=== PATIENT | male | born 1980 | race Caucasian/White ===

== ENCOUNTER 2016-08-18 07:31 | Day surgery (SDC) | payer MEDICAID ==
[2016-08-18] MEDS ORDERED: Dextrose 5%-Lactated Ringers 1,000 ML IV SCH (08:15)
[2016-08-18] MEDS ORDERED: Linezolid 600 MG in Premix Bag 1 BAG IV ONE (08:15)
[2016-08-18] MEDS ORDERED: Lidocaine 1% with EPINEPHrine 1:100,000 50 ML MDV ONE (08:26)
[2016-08-18] MEDS ORDERED: Bupivacaine 0.5% 50 ML MDV ONE (08:26)
[2016-08-18] MEDS ORDERED: fentaNYL 100 MCG/2 ML SDV ONE (08:43)
[2016-08-18] MEDS ORDERED: Midazolam 1 MG/ML 2 ML SDV ONE (08:43)
[2016-08-18] MEDS ORDERED: Propofol 200 MG/20 ML SDV ONE (08:43)
[2016-08-18 09:54] VITALS: BP 121/33
--- NOTE | 2016-08-18 11:07 | CR ---
Single fluoroscopic image of a left Port-A-Cath.
--- NOTE | 2016-08-19 10:31 | OR ---
DATE OF PROCEDURE: 08/18/2016 PREOPERATIVE DIAGNOSIS: Hodgkin's disease with requirement for central venous access. POSTOPERATIVE DIAGNOSIS: Hodgkin's disease with requirement for central venous access. OPERATIVE PROCEDURE: Insertion of Bard PowerPort via left subclavian vein approach (00190). ANESTHESIA: Local plus IV sedation. INDICATIONS FOR PROCEDURE: This 36-year-old recently diagnosed with Hodgkin's disease, to facilitate chemotherapy, is to undergo a central venous access placement. Potential risks of procedure including bleeding, infection, pneumohemothorax, injury to the vasculature, possibility of the port becoming infected or occluded were all reviewed, and the patient wishes to proceed. DESCRIPTION OF PROCEDURE: The patient was taken to the operating room and placed in a supine position. IV sedation was administered, after which the upper chest and neck areas were prepped and draped. The left subclavian area was anesthetized with 1% lidocaine mixed with Marcaine, the subclavian vein cannulated, and a guidewire passed from there into the superior vena cava. Some additional local was then injected and a transverse infraclavicular incision made and carried down through the skin and subcutaneous tissue to the pectoralis major fascia. A pocket was then bluntly created underneath the pectoralis major fascia. The PowerPort was then positioned into that pocket, and the catheter was cut, such that the tip would lie into the upper right atrium. Over the introducer and peel-away catheter, the Bard PowerPort catheter was placed in a successful location, and no complications were confirmed by fluoroscopy. The incision was then closed with 3-0 and 4-0 Vicryl stitch deep and a 4-0 Vicryl subcuticular stitch. Steri-Strips applied. The port was flushed once again with heparinized saline, and dressing was applied. There were no evident complications. The patient was taken to the recovery room in satisfactory condition. Eric Gama MD /[id number]
== END 2016-08-18 10:18 | disposition home or self-care (01) ==
LOC: JP.SDS 07:31
PROVIDERS: ATTEND Surgery
PROC: 0JH63XZ Insertion of Tunneled Vascular Access Device into Chest Subcutaneous Tissue and Fascia, Percutaneous Approach (ICD-10-PCS; principal; 2016-08-18)
DX: C81.90 Hodgkin lymphoma, unspecified, unspecified site (principal); Z92.21 Personal history of antineoplastic chemotherapy
CPT/HCPCS: 36415; 36561; 85025; C1788; J1642; J2020; J2250; J2704; J3010; J7042

== ENCOUNTER 2016-11-03 14:01 | Inpatient (IN) | payer MEDICAID ==
[2016-11-03] MEDS ORDERED: Acetaminophen 325 MG Tab PO PRN (14:50)
[2016-11-03] MEDS ORDERED: Ibuprofen 600 MG Tab PO PRN (14:50)
[2016-11-03] MEDS ORDERED: Ondansetron 4 MG Tab.DIS PO PRN (14:50)
[2016-11-03] MEDS ORDERED: Sodium Chloride 0.9% 10 ML Syringe FLUSH PRN (14:50)
--- NOTE | 2016-11-03 15:03 | PCM.HP ---
H&P History of Present Illness - General Date of Service: 11/03/16 Admit Problem/Dx: Admission Diagnosis/Problem Admission Diagnosis/Problem Fever Source of Information: Patient, Provider History Limitations: Reports: No Limitations - History of Present Illness Initial Comments - Free Text/Narative: Jorge presents as a direct admission from the urgent care clinic. He presented there today with odynophagia. He reports pain in the left upper part of his mouth when he tries to eat or swallow. This symptom has been present for the past 2 days and was worse than normal this morning. He has not had fevers or chills at home. Appetite has been normal and he has not had nausea or vomiting. No complaints of cough, shortness of breath or diarrhea. In general he feels well. He has not noticed any skin rashes. Most recent chemotherapy was 2 weeks ago tomorrow. Workup in the walk-in clinic revealed a fever and mild tachycardia. No obvious source for infection of possibly a dental infection. He was noted to be neutropenic with an absolute neutrophil count of 400. He was directly admitted for IV antibiotics and further workup for infection. - Related Data Allergies/Adverse Reactions: Allergies Allergy/AdvReac Type Severity Reaction Status Date / Time No Known Allergies Allergy Verified 06/16/16 15:11 Past Medical History HEENT History: Reports: Otitis Media Immunologic History: Reports: Immunosuppression Other Immunologic History: low WBC count Oncologic (Cancer) History: Reports: Hodgkin's Lymphoma - Infectious Disease History Infectious Disease History: Reports: Chicken Pox - Past Surgical History HEENT Surgical History: Reports: Eye Surgery, Other (See Below) Other HEENT Surgeries/Procedures: left eye when he was a child Oncologic Surgical History: Reports: None Social & Family History - Family History Family Medical History: Noncontributory - Tobacco Use Smoking Status *Q: Never Smoker - Caffeine Use Caffeine Use: Reports: Coffee, Soda - Alcohol Use Days Per Week of Alcohol Use: 7 Number of Drinks Per Day: 1 Total Drinks Per Week: 7 - Recreational Drug Use Recreational Drug Use: No H&P Review of Systems - Review of Systems: Review Of Systems: See Below Free Text/Narrative: A complete 12 point review of systems was obtained. Pertinent positives and negatives are noted in the history of present illness. All other systems were reviewed and were negative except as noted. Exam - Exam Exam: See Below - Vital Signs Vital Signs: Last Vital Signs Temp 37.6 C 11/03/16 14:43 Pulse 95 11/03/16 14:43 Resp 18 11/03/16 14:43 BP 118/75 11/03/16 14:43 Pulse Ox 97 11/03/16 14:43 Weight: 87.997 kg - Exam Quality Assessment: No: Supplemental Oxygen General: Alert, Oriented, Cooperative. No: Mild Distress HEENT: Conjunctiva Clear, Mucosa Moist & [place], Posterior Pharynx Clear, Pupils Equal, Other (mild inflammation left posterior hard palate. No obvious abnormalities of the teeth such as discharge or erythema of the surrounding gum tissue). No: Scleral Icterus Neck: Supple, Trachea Midline. No: Lymphadenopathy, Thyromegaly Lungs: Clear to Auscultation, Normal Respiratory Effort Cardiovascular: Regular Rate, Regular Rhythm. No: Systolic Murmur GI/Abdominal Exam: Normal Bowel Sounds, Soft, Non-Tender, No Distention Back Exam: Normal Inspection, Full Range of Motion Extremities: Normal Inspection, No Pedal Edema. No: Joint Swelling Peripheral Pulses: 2+: Dorsalis Pedis (L), Dorsalis Pedis (R) Skin: Warm, Dry, Intact. No: Rash Neuro Extensive - Mental Status: Oriented x3, Nl Response to Commands Neuro Extensive - Motor, Sensory, Reflexes: CN II-XII Intact. No: Dysarthria, Abnormal Motor, Tremor Psychiatric: Alert, Normal Affect - Patient Data Lab Results Last 24 hrs: white blood cell count at the outside clinic is 3100 with 400 neutrophils Imaging Impressions Last 24 hrs: chest x-ray - images personally reviewed - there is no evidence for mass, infiltrate or congestive heart failure. Heart size is normal. *Q Meaningful Use (ADM) - VTE *Q VTE Criteria *Q: - VTE Risk Assess *Q Each Risk Factor Represents 1 Point: Central Venous Access Total Score 1 Point Risk Factors: 1 Each Risk Factor Represents 2 Points: None Total Score 2 Point Risk Factors: 0 Each Risk Factor Represents 3 Points: Present Cancer or Chemotherapy Total Score 3 Point Risk Factors: 3 Each Risk Factor Represents 5 Points: None Total Score 5 Point Risk Factors: 0 Venous Thromboembolism Risk Factor Score *Q: 4 - Stroke *Q Stroke Criteria *Q: - AMI *Q AMI Criteria *Q: - Problem List (1) Neutropenic fever SNOMED Code(s): 076048183 ICD Code: D70.9 - NEUTROPENIA, UNSPECIFIED; R50.81 - FEVER PRESENTING WITH CONDITIONS CLASSIFIED ELSEWHERE Status: Acute Current Visit: Yes (2) Hodgkins lymphoma SNOMED Code(s): 490378881 ICD Code: C81.90 - HODGKIN LYMPHOMA, UNSPECIFIED, UNSPECIFIED SITE Status: Chronic Current Visit: Yes Qualifiers: Hodgkin lymphoma type: nodular sclerosis Lymphoma site: multiple regions Qualified Code(s): C81.18 - Nodular sclerosis Hodgkin lymphoma, lymph nodes of multiple sites Problem List Initiated/Reviewed/Updated: Yes Orders Last 24hrs: Active Orders 24 hr Category Date Time Status Patient Status [ADT] Routine ADT 11/03/16 14:50 Ordered Intake and Output [RC] QSHIFT Care 11/03/16 14:50 Ordered Notify Provider Vital Signs [RC] ASDIRECTED Care 11/03/16 14:50 Ordered Oxygen Therapy [RC] PRN Care 11/03/16 14:50 Ordered Up ad Kaitlin [RC] ASDIRECTED Care 11/03/16 14:50 Ordered VTE/DVT Education [RC] Per Unit Routine Care 11/03/16 14:50 Ordered Vital Signs [RC] Q4H Care 11/03/16 14:50 Ordered Regular Diet [DIET] Diet 11/03/16 Dinner Ordered Chest 2V [CR] Routine Exams 11/03/16 14:50 Ordered BASIC METABOLIC PANEL,BMP [CHEM] Routine Lab 11/03/16 14:50 Ordered C-REACTIVE PROTEIN [CHEM] Routine Lab 11/03/16 14:50 Ordered CBC WITH AUTO DIFF [HEME] AM Lab 11/04/16 05:11 Ordered CBC WITH AUTO DIFF [HEME] Routine Lab 11/03/16 14:50 Ordered CULTURE BLOOD [BC] Urgent Lab 11/03/16 14:52 Ordered CULTURE BLOOD [BC] Urgent Lab 11/03/16 14:52 Ordered LACTIC ACID [CHEM] Routine Lab 11/03/16 14:54 Ordered UA W/MICROSCOPIC [URIN] Routine Lab 11/03/16 14:50 Uncollected Acetaminophen [Tylenol] Med 11/03/16 14:50 Ordered 650 mg PO Q4H PRN Cefepime [Maxipime] 1 gm Med 11/03/16 22:00 Ordered Sodium Chloride 0.9% [Normal Saline] 50 ml IV Q8HR Docusate Sodium/Sennosides [Senna Plus] Med 11/03/16 14:50 Ordered 1 tab PO BID PRN Filgrastim [Neupogen] Med 11/03/16 15:00 Once 480 mcg SUBCUT ONETIME ONE Ibuprofen [Motrin] Med 11/03/16 14:50 Ordered 600 mg PO Q6H PRN Ondansetron [Zofran ODT] Med 11/03/16 14:50 Ordered 4 mg PO Q6H PRN Sodium Chloride 0.9% [Saline Flush] Med 11/03/16 14:50 Ordered 10 ml FLUSH ASDIRECTED PRN Blood Culture x2 Reflex Set [OM.PC] Urgent Oth 11/03/16 14:52 Ordered Saline Lock Insert [OM.PC] Routine Oth 11/03/16 14:50 Ordered Sequential Compression Device [OM.PC] Per Unit Routine Oth 11/03/16 14:51 Ordered Resuscitation Status Routine Resus Stat 11/03/16 14:50 Ordered Assessment/Plan Comment:: Assessment and plan - Neutropenic fever - only abnormal exam finding is erythema of the left hard palate, mild dental infection could be considered. No evidence for pulmonary infection and no abdominal or urinary symptoms. No evidence for sepsis at this time. -Follow-up labs and urinalysis -Broad-spectrum antibiotic coverage with cefepime -Blood cultures -Filgrastim today and reassess ANC in the morning, oncology goal is greater than 1500 neutrophils Hodgkin's lymphoma - in remission based on most recent PET/CT, is currently receiving AVD chemotherapy every 15 days, would be due to get his next dose tomorrow.now has fever and neutropenia. Care was discussed with his oncology team this afternoon. -hold chemotherapy for now -filgrastim as above Maintenance issues - - DVT prophylaxis - patient will be ambulatory - GI prophylaxis - not indicated - Nutrition - regular diet - Felipe catheter - not indicated CODE STATUS - full code Admission justification - This patient will be admitted for inpatient services and is medically appropriate meeting medical necessity for inpatient admission as outlined in my documentation. I reasonably expect the patient will require inpatient services that span a period time over 2 midnights. I reasonably expect this patient to be discharged or transferred within 96 hours [facility] Disposition - anticipate discharge home after the hospital stay Primary care physician - [facility] Roger Cedeno M.D.
[2016-11-03] MEDS: Cefepime 1 GM in Sodium Chloride 0.9% 50 ML IV SCH ×2 (16:00→23:39)
[2016-11-04 07:10] VITALS: BP 105/60
[2016-11-04] MEDS: Cefepime 1 GM in Sodium Chloride 0.9% 50 ML IV SCH (09:03)
--- NOTE | 2016-11-04 09:07 | CR ---
Chest 2V HISTORY: Fever COMPARISON: 09/16/2016. FINDINGS: Left-sided Port-A-Cath. Cardiac size and pulmonary vessels normal. Soft tissue prominence in the right paratracheal region correlating to prominent lymph nodes on prior CT scan in August. No de nse infiltrate or effusions seen.
--- NOTE | 2016-11-04 09:44 | PCM.DCSUM1 ---
Discharge Summary - Hospital Course Brief History: 36-year-old male with Hodgkin's lymphoma currently receiving chemotherapy who presented with fever and neutropenia. He was admitted for workup and management. - Discharge Data Discharge Date: 11/04/16 Discharge Disposition: Home, Self-Care 01 Condition: Good - Discharge Diagnosis/Problem(s) (1) Neutropenic fever SNOMED Code(s): 209442076 ICD Code: D70.9 - NEUTROPENIA, UNSPECIFIED; R50.81 - FEVER PRESENTING WITH CONDITIONS CLASSIFIED ELSEWHERE Status: Acute (2) Dental infection SNOMED Code(s): 141461013 ICD Code: K04.7 - PERIAPICAL ABSCESS WITHOUT SINUS Status: Acute (3) Hodgkins lymphoma SNOMED Code(s): 834451604 ICD Code: C81.90 - HODGKIN LYMPHOMA, UNSPECIFIED, UNSPECIFIED SITE Status: Chronic Qualifiers: Hodgkin lymphoma type: nodular sclerosis Lymphoma site: multiple regions Qualified Code(s): C81.18 - Nodular sclerosis Hodgkin lymphoma, lymph nodes of multiple sites - Patient Summary/Data Hospital Course: Jorge presented as a direct admission from the walk-in clinic after he presented with mouth pain and was found to have fever and neutropenia. He was admitted to the hospital and fever workup was initiated. Blood cultures were collected. Chest x-ray was not suggestive of pneumonia and urinalysis was clear. The only abnormality on physical examination was some erythema of the left posterior hard palate. There was no strong evidence for dental infection at this time with no purulent drainage noted. Given the fever greater than 101 and neutrophil count less than 500 I elected to start him on cefepime. Overnight he did not have any difficulties with fever and the next morning is feeling dramatically better. His blood cultures are negative as we near 24 hours. The erythema on the hard palate has improved dramatically but not quite resolved. He did receive a dose of Neulasta on the day of admission and his white blood cell count the day after admission is greater than 7000 with a neutrophil count greater than 3500. I did discuss the case with the oncology team and they were okay with discharged home at this time. I'm planning to continue Augmentin for a total of 1 week of therapy to treat suspected dental infection that involved the left hard palate. I did not see any evidence for abscess formation or active purulent drainage. He will be following up with the oncology team in 1 week. Chemotherapy will be on hold until that time. - Patient Instructions Diet: Regular Diet as Tolerated Activity: As Tolerated Driving: May Drive Today Showering/Bathing: May Shower Notify Provider of: Fever, Increased Pain, Nausea and/or Vomiting Other/Special Instructions: 1. You were in the hospital for management of fever and neutropenia. I suspect the source of infection was a dental infection in the left upper part of your mouth with some inflammation on the hard palate in that area. Your white blood cell count and especially the neutrophil count is now back in the normal range. I do recommend that you take Augmentin twice daily with food for 11 more doses to help treat the rest of the infection. Your first dose is due tonight. Please take the medication with food to help avoid stomach upset. 2. Please seek medical attention if you develop fever greater than 101, the pain in your mouth worsens or you develop shortness of breath, abdominal pain or diarrhea. - Discharge Plan Prescriptions/Med Rec: Amoxicillin/Clavulanate K [Augmentin 875 MG] 1 tab PO BID #11 tablet Home Medications: Home Meds Naproxen 500 mg PO BID PRN 11/03/16 [History] Neomycin/Polymyxin B Sulf/HC [Vtxhazqu-Ugnrnfgwl-Tj Ear Susp] 10 ml EARLF QID [History] tiZANidine [Zanaflex] 4 mg PO TID PRN 11/03/16 [History] Amoxicillin/Clavulanate K [Augmentin 875 MG] 1 tab PO BID #11 tablet 11/04/16 [ Rx] Patient Handouts: Amoxicillin; Clavulanic Acid tablets Referrals: Joanne Collins PA-C [Ordering Only Provider] - 11/10/16 9:45 am - Discharge Summary/Plan Comment DC Time >30 min.: No (25) - Patient Data Vitals - Most Recent: Last Vital Signs Temp 37.3 C 11/04/16 07:09 Pulse 77 11/04/16 07:09 Resp 16 11/04/16 07:09 BP 105/60 11/04/16 07:09 Pulse Ox 97 11/04/16 07:09 Weight - Most Recent: 87.997 kg I&O - Last 24 hours: Intake & Output 11/03/16 11/04/16 11/04/16 22:59 06:59 14:59 Intake Total 50 670 50 Balance 50 670 50 Lab Results - Last 24 hrs: Laboratory Results - last 24 hr 11/03/16 11/03/16 11/03/16 Range/Units 14:50 15:25 15:25 WBC 3.2 L (4.5-11.0) K/uL RBC 4.51 (4.30-5.90) M/uL Hgb 12.9 D (12.0-15.0) g/dL Hct 38.0 L (40.0-54.0) % MCV 84 (80-98) fL MCH 29 (27-31) pg MCHC 34 (32-36) % Plt Count 292 (150-400) K/uL Neut % (Auto) 14 L (36-66) % Lymph % (Auto) 30 (24-44) % [place] % (Auto) 53 H (2-6) % Eos % (Auto) 0 L (2-4) % Baso % (Auto) 2 H (0-1) % Add Manual Diff Neutrophils % (Manual) (36-66) % Band Neutrophils % (5-11) % Lymphocytes % (Manual) (24-44) % Monocytes % (Manual) (2-6) % Eosinophils % (Manual) (2-4) % Sodium 137 L (140-148) mmol/L Potassium 3.7 (3.6-5.2) mmol/L Chloride 102 (100-108) mmol/L Carbon Dioxide 26 (21-32) mmol/L Anion Gap 12.7 (5.0-14.0) mmol/L BUN 10 (7-18) mg/dL Creatinine 1.0 (0.8-1.3) mg/dL Est Cr Clr Drug Dosing 113.17 mL/min Estimated GFR (MDRD) > 60 (>60) Glucose 96 (74-106) mg/dL Lactic Acid (0.4-2.0) mmol/L Calcium 9.1 (8.5-10.1) mg/dL C-Reactive Protein 7.28 H (0.0-0.3) mg/dL Urine Color Yellow Urine Appearance Slightly cloudy Urine pH 7.0 (4.5-8.0) Ur Specific [place] 1.005 L (1.008-1.030) Urine Protein Trace (NEGATIVE) mg/dL Urine Glucose (UA) Normal (NEGATIVE) mg/dL Urine Ketones 15 H (NEGATIVE) mg/dL Urine Occult Blood Negative (NEGATIVE) Urine Nitrite Negative (NEGAITVE) Urine Bilirubin Negative (NEGATIVE) Urine Urobilinogen 4 (NORMAL) mg/dL Ur Leukocyte Esterase Small (NEGATIVE) Urine RBC Not seen (0-5) Urine WBC 0-5 (0-5) Ur Epithelial Cells Not seen Amorphous Sediment Rare Urine Bacteria Not seen Urine Mucus Moderate 11/03/16 11/04/16 Range/Units 15:25 05:50 WBC 7.8 (4.5-11.0) K/uL RBC 4.42 (4.30-5.90) M/uL Hgb 12.3 (12.0-15.0) g/dL Hct 37.2 L (40.0-54.0) % MCV 84 (80-98) fL MCH 28 (27-31) pg MCHC 33 (32-36) % Plt Count 273 (150-400) K/uL Neut % (Auto) (36-66) % Lymph % (Auto) (24-44) % [place] % (Auto) (2-6) % Eos % (Auto) (2-4) % Baso % (Auto) (0-1) % Add Manual Diff Yes Neutrophils % (Manual) 49 (36-66) % Band Neutrophils % 8 (5-11) % Lymphocytes % (Manual) 11 L (24-44) % Monocytes % (Manual) 31 H (2-6) % Eosinophils % (Manual) 1 L (2-4) % Sodium (140-148) mmol/L Potassium (3.6-5.2) mmol/L Chloride (100-108) mmol/L Carbon Dioxide (21-32) mmol/L Anion Gap (5.0-14.0) mmol/L BUN (7-18) mg/dL Creatinine (0.8-1.3) mg/dL Est Cr Clr Drug Dosing mL/min Estimated GFR (MDRD) (>60) Glucose (74-106) mg/dL Lactic Acid 0.8 (0.4-2.0) mmol/L Calcium (8.5-10.1) mg/dL C-Reactive Protein (0.0-0.3) mg/dL Urine Color Urine Appearance Urine pH (4.5-8.0) Ur Specific [place] (1.008-1.030) Urine Protein (NEGATIVE) mg/dL Urine Glucose (UA) (NEGATIVE) mg/dL Urine Ketones (NEGATIVE) mg/dL Urine Occult Blood (NEGATIVE) Urine Nitrite (NEGAITVE) Urine Bilirubin (NEGATIVE) Urine Urobilinogen (NORMAL) mg/dL Ur Leukocyte Esterase (NEGATIVE) Urine RBC (0-5) Urine WBC (0-5) Ur Epithelial Cells Amorphous Sediment Urine Bacteria Urine Mucus Med Orders - Current: Current Medications Acetaminophen (Tylenol) 650 mg PO Q4H PRN PRN Reason: Pain (Mild 1-3)/fever Last Admin: 11/03/16 23:09 Dose: 650 mg Heparin Sodium (Porcine) (Heparin Lock Flush 100 Units/Ml) 500 units FLUSH ASDIRECTED PRN PRN Reason: port maintanence Last Admin: 11/04/16 00:18 Dose: 500 units Cefepime HCl 1 gm/ Sodium (Chloride) 50 mls @ 100 mls/hr IV Q8H DARRELL Last Admin: 11/04/16 09:03 Dose: 100 mls/hr Ibuprofen (Motrin) 600 mg PO Q6H PRN PRN Reason: Pain/Fever Ondansetron HCl (Zofran Odt) 4 mg PO Q6H PRN PRN Reason: Nausea able to take PO Senna/Docusate Sodium (Senna Plus) 1 tab PO BID PRN PRN Reason: Constipation Sodium Chloride (Saline Flush) 10 ml FLUSH ASDIRECTED PRN PRN Reason: Keep Vein Open Discontinued Medications Heparin Sodium (Porcine) (Heparin Lock Flush 100 Units/Ml) Confirm Administered Dose 500 units .ROUTE .STK-MED ONE Stop: 11/03/16 14:18 Last Admin: 11/03/16 16:01 Dose: Not Given Tbo-Filgrastim (Granix) 480 mcg SUBCUT ONETIME ONE Stop: 11/03/16 16:01 Last Admin: 11/03/16 15:38 Dose: 480 mcg *Q Meaningful Use (DIS) - VTE *Q VTE Criteria *Q: - Stroke *Q Stroke Criteria *Q: - AMI *Q AMI Criteria *Q:
== END 2016-11-04 10:40 | disposition home or self-care (01) | DRG 809 ==
LOC: JP.MS 14:01
PROVIDERS: ADMIT Internal Medicine; ATTEND Internal Medicine
DX: D70.9 Neutropenia, unspecified (principal); C81.18 Nodular sclerosis Hodgkin lymphoma, lymph nodes of multiple sites; R50.81 Fever presenting with conditions classified elsewhere; K04.7 Periapical abscess without sinus; Z79.899 Other long term (current) drug therapy
CPT/HCPCS: 36415; 71020; 71020-26; 80048; 81001; 83605; 85025; 86140; 87040; A9270-GY; J0692; J1447; J1642; J7050

== ENCOUNTER 2023-08-06 08:41 | Day surgery (SDC) | payer BC, OTHER ==
[2023-08-06] MEDS: Bupivacaine 0.5% 50 ML MDV ONE (08:50)
[2023-08-06] MEDS: Lidocaine 1% with EPINEPHrine 1:100,000 50 ML MDV ONE (08:51)
[2023-08-06] MEDS ORDERED: Midazolam 1 MG/ML 2 ML SDV ONE (09:02)
[2023-08-06] MEDS ORDERED: fentaNYL 100 MCG/2 ML SDV ONE (09:02)
[2023-08-06] MEDS ORDERED: Propofol 200 MG/20 ML SDV ONE (09:02)
[2023-08-06] MEDS: Sodium Chloride 0.9% 1,000 ML IV SCH (09:19)
[2023-08-06] MEDS: ceFAZolin 2 GM in Premix Bag 1 BAG IV ONE (09:31)
[2023-08-06 11:12] VITALS: BP 102/78; PULSE 79
== END 2023-08-06 11:15 | disposition home or self-care (01) ==
LOC: JP.SDSSCHI 08:41 → JP.SDS 08:41 → UNDOADMIN 08:41 → EDSTATUS 10:00 → JP.SDS 11:15 → UNDODISIN 11:15
PROVIDERS: ATTEND Surgery
DX: Z45.2 Encounter for adjustment and management of vascular access device (principal); E66.3 Overweight; Z68.31 Body mass index [BMI] 31.0-31.9, adult
CPT/HCPCS: J0665; J0690; J2250; J2704; J3010; J7030